=== PATIENT | male | born 1960 | race Caucasian/White ===

== ENCOUNTER → 2017-07-21 09:11 | Outpatient (CLI) | payer BC ==
[2014-10-09 12:54] VITALS: BMI 25.9
[~2017-07-21 09:11] MED LIST: FLAGYL500 MG PO; FOLATE0.4 MG PO; LEVAQUIN750 MG PO; METHOTREXATE2.5 MG PO; ORAPRED ODT10 MG/TAB PO; PLAQUENIL200 MG PO
== END | disposition home or self-care (01) ==
LOC: D.CT 09:11
DX: R31.9 Hematuria, unspecified (principal); R10.9 Unspecified abdominal pain